=== PATIENT | female | born 1980 | race Caucasian/White ===

== ENCOUNTER 2017-06-13 20:53 | Emergency (ER) | payer SELFPAY ==
[2017-06-13 21:04] VITALS: BP 152/96; BMI 21.2
--- NOTE | 2017-06-13 21:21 | DR.GENAD ---
HPI - PCP Primary Care Physician: NFD - Complaint/Symptoms Chief Complaint:: VOMITING FOR 6 DAYS. FEVER, JOINTS SWELLING, PAIN ALL OVER, DARK YELLOW URINE Self Treatment fo Chief Complaint: ROXICODONE YESTERDAY, IBUPROFEN 2 HOURS AGO, ASPIRIN THIS AM - Nurses notes reviewed Nurses Notes Review: Yes - Source History Provided: Patient - Mode of Arrival Mode of Arrival: Ambulatory - Timing Onset of Chief Complaint: 06/08/17 Came on: Gradually - Duration Duration: Intermittent How lon Duration: Days - Severity Severity: Moderate PMH - PMH Past Medical History: No Past Surgical History: Yes Surgical History: - Family History History of Family Medical Conditions: Yes Family Medical History: Cancer, [place] - Social History Does patient currently use any type of tobacco product: Yes Have you used tobacco products in the last 12 months: Yes Type of Tobacco Use: Cigarettes How many years tobacco product used: 20 Does any household member use tobacco: Yes Alcohol Use: None Do you use any recreational Drugs:: Yes (METH) Lives With: Spouse Lives Where: Home - infectious screening In the last 2 months have you had wt loss of >10#?: NO Have you had fever, night sweats or hemotysis?: No Have you traveled outside the country in the last 6 months?: No Isolation: Standard PE - Vital Signs Vitals: Temperature 97.8 F Pulse Rate 94 Respiratory Rate 20 Blood Pressure 152/96 O2 Sat by Pulse Oximetry 99 - Discharge Plan Condition: Stable - Follow ups/Referrals Follow ups/Referrals: NFD,None [Primary Care Provider] - 3 days - Instructions
== END 2017-06-13 22:01 | disposition left against medical advice (07) ==
LOC: ER 21:10
DX: R11.10 Vomiting, unspecified (principal)
CPT/HCPCS: 99281

== ENCOUNTER 2017-06-15 16:06 | Emergency (ER) | payer SELFPAY ==
[2017-06-15 16:10] VITALS: BP 131/82; BMI 21.2
--- NOTE | 2017-06-15 18:33 | DR.GENAD ---
HPI - PCP Primary Care Physician: nfd - HPI Comment HPI Comment: Pt c/o joint pain and swelling, bloody urine and nausea and midepigastric abdominal pain. - Complaint/Symptoms Chief Complaint Doctors Comments: "I'm hurting all over". Chief Complaint:: patient stated she hurts all over and nausea for 8 days. she also stated she has been urinating blood for 6 days. - Nurses notes reviewed Nurses Notes Review: Yes - Source History Provided: Patient - Mode of Arrival Mode of Arrival: Ambulatory - Timing Onset of Chief Complaint: 06/06/17 - Duration Duration: Intermittent How lon Duration: Days - Severity Severity: Moderate PMH - PMH Past Medical History: No Past Surgical History: Yes Surgical History: , Ortho Surgery - Family History History of Family Medical Conditions: Yes Family Medical History: Cancer, [place] - Social History Does patient currently use any type of tobacco product: Yes Have you used tobacco products in the last 12 months: Yes Type of Tobacco Use: Cigarettes How many years tobacco product used: 20 Does any household member use tobacco: Yes Alcohol Use: None Do you use any recreational Drugs:: Yes (METH) Lives With: Family Lives Where: Home - infectious screening In the last 2 months have you had wt loss of >10#?: NO Have you had fever, night sweats or hemotysis?: No Have you traveled outside the country in the last 6 months?: No Isolation: Standard ROS - Review of Systems Constitutional: No Symptoms Reported Eyes: No Symptoms Reported ENTM: No Symptoms Reported Respiratoy: No Symptoms Reported Cardiovascular: No Symptoms Reported Gastrointestinal/Abdominal: Abdominal Pain, Nausea Genitourinary: See HPI, Frequency, Hematuria Neurological: No Symptoms Reported Musculoskeletal: Joint Pain, Joint Swelling Integumentary: No Symptoms Reported Hematologic/Lymphatic: No Symptoms Reported Endocrine: No Symptoms Reported Psychiatric: No Symptoms Reported All Other Systems: Reviewed and Negative PE - Vital Signs Vitals: Temperature 99.1 F Pulse Rate 100 Respiratory Rate 16 Blood Pressure 131/82 O2 Sat by Pulse Oximetry 100 - General Limitations: No Limitations General Appearance: Alert, In No Apparent Distress - Head Head Exam: Normal Inspection - Neck Neck Exam: Normal Inspection, Full ROM, Trachea Midline - Chest Chest Inspection: Normal Inspection, Symmetric Chest Wall Rise - Respiratory Respiratory Exam: Normal Lung Sounds Bilat Respiratory Exam: Bilateral Clear to Auscultation - Cardiovascular Cardiovascular Exam: Regular Rate, Normal Rhythm, Normal Heart Sounds - Abdominal Exam Abdominal Exam: Normal Inspection, Normal Bowel Sounds, Soft - Extremities Extremities Exam: Normal Inspection, Full ROM - Back Back Exam: Normal Inspection, (R) CVA Tenderness - Neurologic Neurological Exam: Alert, Oriented X3, CN II-XII Intact - Psychiatric Psychiatric Exam: Normal Affect, Normal Mood - Skin Skin Exam: Warm, Dry, Intact, Normal Color MDM - Differential Diagnosis Differential Diagnosis: arthritis, UTI, polyarthralgia ROR - Labs Reviewed Result Diagrams: 06/15/17 19:01 06/15/17 19: Laboratory: WBC 9.6 X10^3/uL (3.6-10.0) 06/15/17 19: RBC 5.04 X10^6/uL (3.5-5.4) 06/15/17 19: Hgb 15.0 g/dL (12.0-16.0) 06/15/17 19: Hct 44.4 % (36.0-47.0) 06/15/17 19: MCV 88.0 fL (80.0-100.0) 06/15/17 19: MCH 29.7 pg (27.0-34.0) 06/15/17 19: MCHC 33.8 g/dL (33.0-35.0) 06/15/17 19: RDW 14.9 % (11.6-16.5) 06/15/17 19: Plt Count 384 X10^3/uL (150.0-450.0) 06/15/17 19: MPV 7.2 fL (7.4-11.0) L 06/15/17 19: Neut % 72.4 % (42.0-75.0) 06/15/17 19: Lymph % 15.7 % (21.0-51.0) L 06/15/17 19: Mobile % 9.8 % (0.0-13.0) 06/15/17 19: Eos % 1.3 % (0.9-2.9) 06/15/17 19: Baso % 0.8 % (0.2-1.0) 06/15/17 19: Neut # 7.0 x10^3/uL (2.2-4.8) H 06/15/17 19:01 Lymph # 1.5 X10^3/uL (1.3-2.9) 06/15/17 19:01 Mobile # 0.9 x10^3/uL (0.3-0.8) H 06/15/17 19:01 Eos # 0.1 x10^3/uL (0.0-0.2) 06/15/17 19:01 Baso # 0.1 X10^3/uL (0.0-0.1) 06/15/17 19:01 Absolute Nucleated RBC 0.0 /100WBC 06/15/17 19:01 Specimen Type Clean catch urine 06/15/17 18:28 Urine Color Odette (YELLOW) 06/15/17 18:28 Urine Appearance Cloudy (CLEAR) 06/15/17 18:28 Urine pH Cancelled 06/15/17 18:28 Ur Specific [place] Cancelled 06/15/17 18:28 Urine Protein Cancelled 06/15/17 18:28 Urine Glucose (UA) Cancelled 06/15/17 18:28 Urine Ketones Cancelled 06/15/17 18:28 Urine Occult Blood Cancelled 06/15/17 18:28 Urine Nitrite Cancelled 06/15/17 18:28 Urine Bilirubin Cancelled 06/15/17 18:28 Urine Urobilinogen Cancelled 06/15/17 18:28 Ur Leukocyte Esterase Cancelled 06/15/17 18:28 Urine RBC 0-3 /HPF (NEGATIVE) 06/15/17 18:28 Urine WBC 2-6 /HPF (NEGATIVE) 06/15/17 18:28 Ur Squamous Epith Cells Numerous /HPF (NEGATIVE) 06/15/17 18:28 Ur Transition Epith Cell Cancelled 06/15/17 18:28 Ur Renal Epithelial Cell Cancelled 06/15/17 18:28 Calcium Oxalate Crystal Cancelled 06/15/17 18:28 Cystine Crystals Cancelled 06/15/17 18:28 Uric Acid Crystals Cancelled 06/15/17 18:28 Triple Phos Crystals Cancelled 06/15/17 18:28 Tyrosine Crystals Cancelled 06/15/17 18:28 Other Crystals Cancelled 06/15/17 18:28 Amorphous Sediment Trace /HPF (NEGATIVE) 06/15/17 18:28 Urine Bacteria 1+ /HPF (Negative) 06/15/17 18:28 Hyaline Casts Cancelled 06/15/17 18:28 Granular Casts Cancelled 06/15/17 18:28 Fine Granular Casts Cancelled 06/15/17 18:28 Coarse Granular Casts Cancelled 06/15/17 18:28 WBC Casts Cancelled 06/15/17 18:28 Other Casts Cancelled 06/15/17 18:28 Urine Mucus Cancelled 06/15/17 18:28 Urine Trichomonas Few /HPF (NEGATIVE) 06/15/17 18:28 Urine Yeast Cancelled 06/15/17 18:28 Urine Sperm Cancelled 06/15/17 18:28 Ur Culture Indicated? No/not indicated 06/15/17 18:28 Micro UA Comment Unable to perform (-) 06/15/17 18:28 Urine Opiates Screen Negative (NEG=<300) 06/15/17 18:28 Urine Methadone Screen Negative (NEG=<300) 06/15/17 18:28 Ur Barbiturates Screen Negative (NEG=<200) 06/15/17 18:28 Ur Phencyclidine Scrn Negative (NEG=<25) 06/15/17 18:28 Ur Amphetamines Screen Positive (NEG=<1000) A 06/15/17 18:28 U Benzodiazepines Scrn Negative (NEG=<200) 06/15/17 18:28 Urine Cocaine Screen Negative (NEG=<300) 06/15/17 18:28 U Marijuana (THC) Screen Positive (NEG=<50) A 06/15/17 18:28 - Diagnosis Discharge Problem: Trichomoniasis, urogenital Joint pain Qualifiers: Joint pain location: unspecified Qualified Code(s): M25.50 - Pain in unspecified joint - Discharge Plan Disposition: 01 HOME, SELF-CARE Condition: Stable Prescriptions: Ibuprofen [MOTRIN TAB 800 MG *] 800 mg PO TID #30 tab - Follow ups/Referrals Follow ups/Referrals: NFD,None [Primary Care Provider] - 3 days - Instructions
[2017-06-15] MEDS ORDERED: TORADOL 60 MG VIAL IM ONE (18:42)
[2017-06-15] MEDS ORDERED: TORADOL 60 MG VIAL ONE (18:46)
[2017-06-15 19:08] LABS: BASOPHILS # (AUTO) 0.1 X10^3/uL (0.0-0.1); BASOPHILS % (AUTO) 0.8 % (0.2-1.0); EOSINOPHILS # (AUTO) 0.1 x10^3/uL (0.0-0.2); EOSINOPHILS % (AUTO) 1.3 % (0.9-2.9); HEMATOCRIT 44.4 % (36.0-47.0); LYMPHOCYTES # (AUTO) 1.5 X10^3/uL (1.3-2.9); LYMPHOCYTES % (AUTO) 15.7 % (21.0-51.0); MEAN CORPUSCULAR HEMOGLOBIN 29.7 pg (27.0-34.0); MEAN CORPUSCULAR HGB CONC 33.8 g/dL (33.0-35.0); MEAN PLATELET VOLUME 7.2 fL (7.4-11.0); MONOCYTES # (AUTO) 0.9 x10^3/uL (0.3-0.8); MONOCYTES % (AUTO) 9.8 % (0.0-13.0); NEUTROPHILS % (AUTO) 72.4 % (42.0-75.0); PLATELET COUNT 384 X10^3/uL (150.0-450.0); RED BLOOD COUNT 5.04 X10^6/uL (3.5-5.4); RED CELL DISTRIBUTION WIDTH 14.9 % (11.6-16.5); WHITE BLOOD COUNT 9.6 X10^3/uL (3.6-10.0)
[2017-06-15 19:13] LABS: AMORPHOUS SEDIMENT,UR TRACE /HPF (NEGATIVE); APPEARANCE,URINE CLOUDY (CLEAR); COLOR,URINE AMBER (YELLOW); RBC,URINE 0-3 /HPF (NEGATIVE); SQUAMOUS EPITHELIAL CELL,UR NUMEROUS /HPF (NEGATIVE)
[2017-06-15 19:14] LABS: BACTERIA,URINE 1+ /HPF (Negative); TRICHOMONAS,URINE FEW /HPF (NEGATIVE)
--- NOTE | 2017-06-15 19:25 | RAD ---
HISTORY: Pain Study: Abdominal series Comparison: None Findings: And upright AP chest was obtained which shows no acute cardiopulmonary abnormality. Supine and upright views the abdomen were obtained which shows a nonspecific gas pattern. No free ai r is seen . There are no abnormal calcifications identified. The stomach appears moderately distende d with air and fluid. The bones are intact. IMPRESSION: Possible moderate gastric distention otherwise, nonspecific gas pattern. Recommend clinical followup . Reported By:
[2017-06-15 19:26] LABS: ALBUMIN 2.6 g/dL (3.4-5.0); ALKALINE PHOSPHATASE 292 Units/L (46-116); BLOOD UREA NITROGEN 10 mg/dL (7-18); CALCIUM 7.9 mg/dL (8.5-10.1); CARBON DIOXIDE 26.1 mmol/L (21-32); CHLORIDE 103 mmol/L (98-107); CREATININE 0.72 mg/dL (0.55-1.02); GLUCOSE 100 mg/dL (65-99); SODIUM 136 mmol/L (136-145); TOTAL PROTEIN 6.3 g/dL (6.4-8.2); eGFR BLACK RACES > 60 (>60); eGFR NON BLACK RACES > 60 (>60)
[2017-06-15 19:40] LABS: ALANINE AMINOTRANSFERASE 2314 Units/L (12-78); ASPARTATE AMINO TRANSFERASE 1554 Units/L (15-37)
[2017-06-15] MEDS ORDERED: NS 100 ML IV 100 ML IV ONE (19:54)
[2017-06-15 19:58] LABS: ERYTHROCYTE SEDIMENTATION RATE 5 MM/HOUR (0-20)
[2017-06-15] MEDS ORDERED: FLAGYL TAB 500 MG PO SCH (20:00)
[2017-06-15] MEDS ORDERED: FLAGYL TAB 500 MG PO ONE (21:08)
--- NOTE | 2017-06-15 21:22 | CT ---
CT ABDOMEN AND PELVIS WITH IV CONTRAST CLINICAL HISTORY: 36-year-old female with abdominal pain. COMPARISON: None. TECHNIQUE: Multiple contiguous axial images of the abdomen and pelvis were obtained following the ad ministration of IV contrast. Coronal and sagittal reformatted imaging was submitted. FINDINGS: The lung bases are clear without pulmonary nodules, masses, or pleural fluid collections. The infer ior imaged mediastinum and heart is normal in size and there is no pericardial effusion. The liver, gallbladder, pancreas, and spleen are within normal limits. The adrenal glands are normal bilaterally. The kidneys perfuse in a normal fashion and the ureters run in an unobstructed course to a well distended urinary bladder. Uterus is anteverted with mildly enhancing endometrial mucosa and fluid within the endometrial canal , correlate with menstrual cycle. Peripheral lobulated cystic lesion within the right ovary , likel y corpus luteal cyst. Adnexa unremarkable otherwise. Vagina and perineum are unremarkable. Left pelv ic phlebolith. The appendix is normal in appearance. The bowel is without obstruction or inflammation and there is no free fluid or free air within the peritoneal cavity. There are no pathologically enlarged lymph nodes in the abdomen or pelvis. The arteriovascular structures are within normal limits. Soft tissues are normal. The osseous structures are intact without fracture or malalignment. IMPRESSION: 1. Findings consistent with right corpus luteal cyst and fluid within the endometrial canal, correla te with menstrual cycle. 2. No other acute intra-abdominal or intrapelvic process. Reported By:
[2017-06-20 20:30] LABS: HEPATITIS A ANTIBODY IGM Negative (Negative)
[2017-06-22 09:39] LABS: HEPATITIS B CORE IGM Positive (Negative); HEPATITIS B SURFACE ANTIGEN Positive (Negative)
== END 2017-06-15 22:14 | disposition home or self-care (01) ==
LOC: ER 16:15
DX: M25.50 Pain in unspecified joint (principal); A59.00 Urogenital trichomoniasis, unspecified
CPT/HCPCS: 36415; 74022; 74177; 80053; 80074; 80307; 81015; 85025; 85652; 96365; 96372; 99283; A4222; G0434; J1885

== ENCOUNTER 2017-12-07 20:26 | Emergency (ER) | payer SELFPAY ==
[2017-12-07 20:31] VITALS: BP 136/90; BMI 22.0
== END 2017-12-07 21:47 | disposition left against medical advice (07) ==
LOC: ER 20:35
DX: M54.5 Low back pain (principal)
CPT/HCPCS: 99281